=== PATIENT | male | born 1935 | race Two or more races ===

== ENCOUNTER 2022-12-11 14:52 | Outpatient (AMB) | payer OTHER, SELFPAY ==
--- NOTE | 2022-12-11 14:57 | MHC.PC.OV ---
Vital Signs 12/11/22 14:58 Height 6 ft Weight 140 lb BMI 19.0 BP 146/90 H Blood Pressure Location Lt brachial Position Sitting Intake Visit Reasons: bp Intake Note: Patient here for a follow up BP Mail Distribution Scheme Examiner Required: No Accompanied by: STEFFEN HOUSE SUPERVISOR Allergies No Known Allergies [No Known Allergies*] Allergy (Verified 12/11/22 15:19) Medication List - Last Reconciled 12/11/22 by Zully Sahni MD acetaminophen ER 1,300 mg (2 x 650 mg) PO Q8H PRN 30 days amlodipine 10 mg PO DAILY aspirin (Adult Aspirin Regimen) 81 mg PO DAILY 90 days atorvastatin 20 mg PO BEDTIME carvedilol (Coreg) 3.125 mg PO BID 90 days compress.stocking,knee,reg,lrg As directed donepezil 5 mg PO DAILY 90 days olmesartan 40 mg PO DAILY omega-3 fatty acids 1,000 mg PO DAILY 90 days quetiapine 25 mg PO BEDTIME trazodone 100 mg PO BEDTIME PRN 90 days Tobacco use date assessed: 06/10/22 Fall risk assessment: No Falls in past year Last assessed Fall Risk: 12/11/22 Dental Screening Dental Screen Date: 12/11/22 Did you have a dental visit in the last 12 months?: Yes Did you have a dental problem in the last 6 months where you did not have access to dental care?: No Was dental information given to patient?: Patient has dentist HPI HPI Comments History of Present Illness Details This is an 87-year-old male with chronic kidney disease stage 3, hypertension, dyslipidemia and dementia that comes today accompanied by STEFFEN HOUSE SUPERVISOR for follow-up on his conditions. Chronic kidney disease has improved and this is follow by Nephrology. Blood pressure has also improved. Cholesterol well control. Dementia has not significantly changed and this is follow by Neurology. Denies any chest pain or shortness of breath. Walks with a cane for gait stability. He has anemia of chronic kidney disease and received Procrit but low iron in the labs and I will start him on ferrous sulfate. [facility] Medical History Physical exam Onychomycosis Left inguinal hernia Insomnia CKD (chronic kidney disease) stage 3, GFR 30-59 ml/min Normocytic anemia Sacral pain Rib pain Hearing loss Endoleak post endovascular aneurysm repair Left inguinal hernia Dementia Restenosis of arterial stent Dyslipidemia Essential hypertension Surgical History History of AAA (abdominal aortic aneurysm) repair History of inguinal hernia repair History of appendectomy Family History Father Hypertension Mother Hypertension Social History Household Members: Spouse Housing: Apartment Are you a primary customer care manager to a significant other at home: No Do you presently have visiting nurse or other home services: Yes (STEFFEN HOUSE SUPERVISOR) Alcohol intake: former Patient Tobacco Use Status: Former Tobacco user Tobacco use type: Cigarette e-Cigarette/Vaping Use: Never Used Second Hand Smoke Exposure: No service: No Current occupational status: retired Cognitive needs: Yes (cane ) Hearing needs: Yes Vision needs: No Questionnaire Thrive Questionnaire Date Thrive assessed: 06/10/22 MICK-7 AMB Questionnaire MICK-7 Date MICK - 7 assessed: 06/10/22 Source: Developed by Drs. Jamir Hinson, Winnie Fernandes, Basil Olmos and colleagues, with an educational reji from [employer]. Review of Systems Const All systems reviewed & are unremarkable except as noted in HPI and below Eyes Reports no additional complaints, Denies change in vision and Denies other visual disturbances Card Denies chest pain at rest, Denies chest pain with activity, Denies edema, Denies irregular heart rhythm, Denies claudication, Denies dyspnea, Denies dyspnea on exertion, Denies orthopnea, Denies paroxysmal nocturnal dyspnea and Denies slow heart rate Resp Denies cough, Denies dyspnea and Denies dyspnea on exertion GI Denies abdominal pain, Denies change in bowel habits, Denies excessive flatus, Denies nausea and Denies vomiting Denies urinary hesitancy, Denies urinary incontinence and Denies urinary urgency Musc Denies abnormal gait, Denies atrophy, Denies deformity and Denies limited range of motion Skin/Breast Denies bleeding lesions, Denies changing lesions and Denies rash Neuro Denies abnormal gait and Denies lack of coordination Physical exam (Primary Care) Vital Signs: Last Vital Signs BP 146/90 H 12/11/22 14:58 BMI result Body Mass Index 19.0 Tobacco/Smoking Status: Tobacco use Status Tobacco use date assessed 06/10/22 12/11/22 15:01 Patient Tobacco Use Status Former Tobacco user 12/11/22 15:01 Tobacco use type Cigarette 12/11/22 15:01 e-Cigarette/Vaping Use Never Used 12/11/22 15:01 Thrive Assessment: Date of Thrive Assessment Date Thrive assessed 06/10/22 12/11/22 15:01 Eyes General: appearance normal, both eyes and all related structures Eyelids: Yes eyelids normal Conjunctivae: conjunctivae normal Neck Neck: Yes normal visual inspection and Yes supple Resp Effort & Inspection: normal respiratory effort Auscultation: clear to auscultation bilaterally Cardio Jugular venous distension: no JVD Rate: regular rate Rhythm: regular rhythm Heart sounds: S1 normal heart sound present and S2 normal heart sound present Extrem General: Yes full ROM Assessment and Plan Assessment & Plan (1) Essential hypertension: Code(s): I10 - Essential (primary) hypertension Plan: Continue amlodipine and olmesartan. Blood pressure goal is equal or less than 130/80. (2) Dyslipidemia: Code(s): E78.5 - Hyperlipidemia, unspecified Plan: Continue statins. (3) Dementia: Code(s): F03.90 - Unspecified dementia, unspecified severity, without behavioral disturbance, psychotic disturbance, mood disturbance, and anxiety Qualifiers: Dementia type: unspecified type Dementia behavioral disturbance: without behavioral disturbance Qualified Code(s): F03.90 - Unspecified dementia without behavioral disturbance Plan: Continue donepezil. Follow-up with Neurology. (4) CKD (chronic kidney disease) stage 3, GFR 30-59 ml/min: Code(s): N18.30 - Chronic kidney disease, stage 3 unspecified Qualifiers: Chronic kidney disease stage 3 subtype: stage 3a (GFR 45-59) Qualified Code(s): N18.31 - Chronic kidney disease, stage 3a Plan: Follow-up with nephrology. Orders: Orders Comprehensive Met. Panel 4 Months N18.30 - Chronic kidney disease, stage 3 unspecified Lipid Panel 4 Months E78.5 - Hyperlipidemia, unspecified Medications: New ferrous sulfate 325 mg PO DAILY 90 days 90 tabs 0RF Resumed trazodone 100 mg PO BEDTIME 90 days PRN 90 tabs 0RF sleep trazodone 100 mg PO BEDTIME 90 days PRN 90 tabs 0RF sleep Coding Level of Care Code Est Pt Level 4 (36188) Diagnoses Essential hypertension I10 Dyslipidemia E78.5 Dementia without behavioral disturbance, unspecified dementia type F03.90 Dementia type: unspecified type Dementia behavioral disturbance: without behavioral disturbance Stage 3a chronic kidney disease N18.31 Chronic kidney disease stage 3 subtype: stage 3a (GFR 45-59) Time Spent (min) 23
[2022-12-11 14:58] VITALS: BP 146/90; BMI 19.0
== END 2022-12-11 15:21 | disposition home or self-care (01) ==
PROVIDERS: PCP Internal Medicine; Visit Provider Internal Medicine
DX: I12.9 Hypertensive chronic kidney disease with stage 1 through stage 4 chronic kidney disease, or unspecified chronic kidney disease (principal); N18.31 Chronic kidney disease, stage 3a; E78.5 Hyperlipidemia, unspecified; F03.90 Unspecified dementia, unspecified severity, without behavioral disturbance, psychotic disturbance, mood disturbance, and anxiety
CPT/HCPCS: 99214

== ENCOUNTER 2023-06-17 09:16 | Outpatient (REF) | payer OTHER, SELFPAY ==
[2023-06-17 09:38] LABS: MANUAL DIFF FLAG NO
[2023-06-17 09:41] LABS: Basophils Percent Auto 0.7 % (0-2); Eosinophils Absolute Auto 0.1 X10*3/uL (0.0-0.4); Eosinophils Percent Auto 2.2 % (0-4); Hematocrit 36.2 % (42.0-52.0); Hemoglobin 11.9 g/dl (14.0-18.0); Imm Gran Abs Auto 0.02 X10*3/uL (0.00-0.03); Imm Gran Pct Auto 0.3 % (0.0-0.4); Lymphocytes Absolute Auto 1.9 X10*3/uL (1.2-4.9); Lymphocytes Percent Auto 32.4 % (20-40); Mean Corpuscular HGB Conc 32.9 g/dl (31.0-36.0); Mean Corpuscular Hemoglobin 29.2 pg (27.0-33.0); Mean Corpuscular Volume 88.7 fL (80.0-98.0); Mean Platelet Volume 10.2 fL (9.4-12.4); Monocytes Absolute Auto 0.6 X10*3/uL (0.1-1.2); Monocytes Percent Auto 9.8 % (2-11); Neutrophils Absolute Auto 3.2 x10*3/uL (2.0-8.3); Neutrophils Percent Auto 54.6 % (45-73); Platelet Count 132 X10*3/uL (160-400); Red Blood Count 4.08 X10*6/uL (4.60-5.80); Red Cell Distribution Width 14.6 % (11.0-16.0); White Blood Count 5.8 X10*3/uL (4.8-10.8)
[2023-06-17 09:59] LABS: Cholesterol 202 mg/dL (<200); HDL Cholesterol 62 mg/dL (>40); LDL Cholesterol Calculated 121 mg/dL (<100); Triglycerides 95 mg/dL (<150)
[2023-06-17 10:05] LABS: Alanine Aminotransferase 8 U/L (0-40); Alkaline Phosphatase 107 U/L (39-117); Anion Gap 14 (12-20); Aspartate Amino Transferase 13 U/L (5-37); Blood Urea Nitrogen 41 mg/dL (9-16); Calcium 9.4 mg/dL (8.4-10.2); Carbon Dioxide 24 mmol/L (22-29); Chloride 107 mmol/L (96-108); Estimated Glomerular Filt Rate 29; Glucose Random 80 mg/dL (60-115); Iron 102 mcg/dL (45-160); Percent Iron Saturation 34 % (15-50); Potassium 4.3 mmol/L (3.3-5.1); Sodium 141 mmol/L (135-145); Total Iron Binding Capacity 301 mcg/dL (228-428); Total Protein 7.9 g/dL (6.5-8.0); Unsaturated Iron Binding 199 ug/dL
[2023-06-17 10:19] LABS: Ferritin 149 ng/mL (20-250)
== END 2023-06-17 09:17 | disposition home or self-care (01) ==
LOC: HO.LAB 09:16
PROVIDERS: Absent Provider Internal Medicine Medical Oncology; PCP Internal Medicine; Visit Provider Internal Medicine
DX: D64.9 Anemia, unspecified (principal); E78.5 Hyperlipidemia, unspecified
CPT/HCPCS: 36415; 80053; 80061; 82728; 83540; 85025

== ENCOUNTER 2023-08-13 13:11 | Outpatient (AMB) | payer OTHER, SELFPAY ==
--- NOTE | 2023-08-13 13:14 | MHC.OFFVIS ---
Vital Signs 08/13/23 13:15 Height 6 ft Weight 162 lb 4.163 oz BMI 22.0 BP 140/78 H Blood Pressure Location Lt brachial Position Sitting Pulse 66 Pulse Source Monitor Pulse Oximetry (%) 97 Oxygen Delivery Method Room Air Intake Visit Reasons: r/s 08/06/23 refill rx Threshing Machine Operator Required: Yes Threshing Machine Operator Name: Luke Allergies No Known Allergies [No Known Allergies*] Allergy (Verified 03/03/23 15:40) Medication List - Last Reconciled 08/13/23 by Kerrie Gilbert NP acetaminophen ER 1,300 mg (2 x 650 mg) PO Q8H PRN 30 days [adult diapers pull-ups As directed] amlodipine 10 mg PO DAILY aspirin (Adult Aspirin Regimen) 81 mg PO DAILY 90 days atorvastatin 20 mg PO BEDTIME carvedilol (Coreg) 3.125 mg PO BID 90 days compress.stocking,knee,reg,lrg As directed donepezil 5 mg PO DAILY 90 days ferrous sulfate 325 mg PO DAILY 90 days olmesartan 40 mg PO DAILY omega-3 fatty acids 1,000 mg PO DAILY 90 days quetiapine 25 mg PO BEDTIME trazodone 100 mg PO BEDTIME PRN 90 days HPI Comments Details: 88-year-old male presents today for a follow-up with his RN NEW GRADUATE. He was last seen in 01/[address] Yanez. They both report he has been doing well since last visit. He denies any chest pains, palpitations, or dizziness. The RN NEW GRADUATE notes she has noted he gets has to use more effort to breath when ambulating. He has a history of ASCVD, CKD, Dementia, Hypertension, and anemia. [facility] Medical History Physical exam Onychomycosis Left inguinal hernia Insomnia CKD (chronic kidney disease) stage 3, GFR 30-59 ml/min Normocytic anemia Sacral pain Rib pain Hearing loss Endoleak post endovascular aneurysm repair Left inguinal hernia Dementia Restenosis of arterial stent Dyslipidemia Essential hypertension Surgical History History of AAA (abdominal aortic aneurysm) repair History of inguinal hernia repair History of appendectomy Family History Father Hypertension Mother Hypertension Social History Household Members: Spouse Housing: Apartment Are you a primary childcare administrator to a significant other at home: No Do you presently have visiting nurse or other home services: Yes (RN NEW GRADUATE) Alcohol intake: former Patient Tobacco Use Status: Former Tobacco user Tobacco use type: Cigarette e-Cigarette/Vaping Use: Never Used Second Hand Smoke Exposure: No Use of substances other than those prescribed or required for medical reasons: No Have you been hit, kicked, punched, or otherwise hurt by someone within the past year? If so, by whom?: No Do you have thoughts of harming others: None Do you have a plan to hurt others: No Plan Do you have the means to hurt others: No Recently lost weight without trying: No service: No Current occupational status: retired Cognitive needs: Yes (cane ) Hearing needs: Yes Vision needs: No Review of Systems Const Denies weakness ENT Denies dizziness Card Denies chest pain, Denies chest pain with activity, Denies syncope, Denies rapid heart rate, Denies pedal edema, Denies edema, Denies leg edema, Denies lightheadedness, Denies palpitations, Denies dyspnea, Denies dyspnea on exertion and Denies orthopnea Resp Denies cough, Denies dyspnea and Denies dyspnea on exertion GI Denies hematochezia and Denies change in stool character Musc Denies abnormal gait, Denies muscle cramps, Denies muscle weakness, Denies numbness, Denies radiating pain into limb and Denies tingling Neuro Denies abnormal gait, Denies dizziness, Denies syncope, Denies numbness, Denies tingling and Denies weakness Endo Denies palpitations Physical Exam Vital Signs: Last Vital Signs Pulse 66 08/13/23 13:15 BP 140/78 H 08/13/23 13:15 Pulse Ox 97 08/13/23 13:15 Oxygen Delivery Method Room Air 08/13/23 13:15 BMI result Body Mass Index 22.0 Office Procedures EKG Details: EKG today. Normal Sinus Rhythm. Voltage Criteria for left ventricular hypertrophy. Nonspecific ST abnormality. Rate 66 bpm. HI 170 ms. QRS 92ms. QTc 461ms. [id number], Complete Quality Reporting (2019) Adult ([facility] 138/2/22/69) Smoking risk assessment performed?: Yes Patient Tobacco Use Status: Former Tobacco user Assessment & Plan Assessment & Plan (1) Atherosclerotic cardiovascular disease: Code(s): I25.10 - Atherosclerotic heart disease of [place] coronary artery without angina pectoris Category: Medical (2) Essential hypertension: Code(s): I10 - Essential (primary) hypertension Category: Medical Plan Blood pressures high today. Asked to monitor at home and bring log to next visit. Patient is on amlodipine 10mg, aspirin 81mg, atorvastatin 20mg, carvedilol 3.125mg, and olmensartan 40mg. Low salt diet discussed. Will update lipid panel, BMP, and echo. Orders: Orders CA echo transthoracic complete 08/13/23 Kerrie Gilbert NP I25.10 - Atherosclerotic heart disease of [place] coronary artery without angina pectoris Lipid Panel 08/13/23 Kerrie Gilbert NP I25.10 - Atherosclerotic heart disease of [place] coronary artery without angina pectoris Basic Metabolic Panel 08/13/23 Kerrie Gilbert NP I25.10 - Atherosclerotic heart disease of [place] coronary artery without angina pectoris Lipid Panel 4 Months Kerrie Gilbert NP E78.5 - Hyperlipidemia, unspecified Medications: Resumed atorvastatin 20 mg PO BEDTIME 90 tabs 2RF Zully Sahni MD Coding Level of Care Code Est Pt Level 3 (40227) Diagnoses Atherosclerotic cardiovascular disease I25.10 Essential hypertension I10 CPT Codes EKG - CPT: 06066-[id number], Complete ([id number])
[2023-08-13 13:15] VITALS: BP 140/78; PULSE 66; O2SAT 97; BMI 22.0
== END 2023-08-13 14:09 | disposition home or self-care (01) ==
PROVIDERS: PCP Internal Medicine; Visit Provider Nurse Practitioner
DX: I25.10 Atherosclerotic heart disease of native coronary artery without angina pectoris (principal); I10 Essential (primary) hypertension
CPT/HCPCS: 93010; 99213

== ENCOUNTER → 2023-08-13 13:11 | Outpatient (BNVA) | payer OTHER, SELFPAY | PROVIDERS: PCP Internal Medicine; Visit Provider Nurse Practitioner | DX: I25.10 Atherosclerotic heart disease of native coronary artery without angina pectoris (principal); I10 Essential (primary) hypertension | CPT/HCPCS: 93005; 99212 ==

== ENCOUNTER → 2023-09-03 14:16 | Outpatient (REF) | payer OTHER, SELFPAY ==
--- NOTE | 2023-09-03 14:22 | CA_ITS ---
Transthoracic Echocardiogram Patient (Last, First, Middle): Malachi Griffin, Gender: Male Date of : 1935 Age: 88 Procedure Date: 09/03/2023 Procedure Type: Transthoracic Echocardiogram Location: OP Height: 182.88 cm Weight: 67.13 kg BSA: 1.87 m2 Heart Rate: 66 bpm BP: 142 / 74 mmHg Brand Marketing Intern: SB Referring MD: Kerrie Gilbert NP Symptoms: I25.10 - Atherosclerotic heart disease of [place] coronary artery without... Study Quality: Adequate ECG Rhythm: Sinus Conclusions: - The left ventricular systolic function is mildly decreased. The calculated ejection fraction is 48% by biplane method. - No obvious valvular pathology seen on this study. - There is mild dilatation of the ascending aorta measuring 4.50 cm. Findings Left Ventricle Normal left ventricular cavity size. The left ventricular systolic function is mildly decreased. The calculated ejection fraction is 48% by biplane method. There is mild global hypokinesis. Diastolic function is indeterminate on the basis of available data. There is severe septal asymmetric hypertrophy. Right Ventricle Normal right ventricular cavity size and systolic function. Atria Both atria are normal in size. Aortic Valve There is mild calcification of the aortic valve. There is no aortic valve regurgitation. Trace to mild aortic regurgitation. Mitral Valve There is mild anterior mitral leaflet thickening. There is no mitral valve regurgitation. There is no mitral valve stenosis. Pulmonic Valve The pulmonic valve is likely normal. Tricuspid Valve There is trace tricuspid valve regurgitation. There is no evidence of pulmonary hypertension. Great Vessels There is mild dilatation of the ascending aorta measuring 4.50 cm. Venous The inferior vena cava was not well visualized. Pericardium/Pleural There is no evidence of pericardial effusion. Prior Study Comparison Changes noted compared to prior study dated: 01/06/2022. Slight increase in ascending aortic size. Recommendations, Care & Conclusions No obvious valvular pathology seen on this study. Measurements 2D Linear Measurements IVSd: 1.54 0.6-0.9/0.6-1.0 cm LVIDd: 4.66 3.9-5.3/4.2-5.9 cm LVIDd Index: 2.49 2.4-3.2/2.2-3.1 cm/m2 LVIDs: 3.57 2.0-3.6 cm LVPWd: 0.91 0.7-1.1 cm LV Mass: 268.56 67-162/88-224 g LV Mass Index: 143.61 43-95/49-115 g/m2 LVOT Diam: 2.40 3.0+(-)1.3 cm 2D Systolic Function EF 4C: 48.90 >55% EF 2C: 46.20 >55% EF BiP: 48.20 >55% Mitral Valve MV Pk E: 0.45 MV PK A: 0.89 MV Decel Time: 117.00 E/A: 0.50 E'Lateral: 3.59 E'Medial: 2.28 E/E' Med: 19.60 E/E' Lat: 12.40 PHT: 34.00 MVA PHT: 6.47 Decel [place]: 3.80 Aortic Valve AoV Pk Alo: 1.51 AoV Mn Alo: 1.03 AoV VTI: 0.29 AoV Pk Grad: 9.00 Aov Mn Grad: 5.00 BRENDA Cont.VTI: 2.56 AI Pk Alo: 4.44 AI VTI: 2.14 AI [place]: 2.48 AI Alias Alo: 0.39 AI RV - PISA: 11.00 ERO - PISA: 5.00 LVOT LVOT Pk Alo: 0.85 LVOT Mn Alo: 0.56 LVOT VTI: 0.16 LVOT Pk Grad: 3.00 LVOT Mn Grad: 1.00 LVOT Diam: 2.40 LVOT Area: 4.52 Diastolic Function MV Pk E: 0.45 MV Pk A: 0.89 E/A: 0.50 E'Medial: 2.28 E/E' Med: 19.60 E' Laterial: 3.59 E/E' Lat: 12.40 Right Ventricle TAPSE (mm): 20.80 TVS' Alo: 11.10 Tricuspid Valve TR Pk Alo: 2.08 TR Pk Grad: 17.00 RA Press: 3.00 RVSP: 20.00 Great Vessels Aorta Sinus of Valsalva: 4.00 2.0-3.5 cm Ao Asc: 4.50 2.1-3.4 cm Pulmonary Valve PV Pk Alo: 0.78 Peak PV Grad: 2.00 Updated in Other Vendor System with Status of Final Josiah Yanez MD electronically signed on 09/04/2023 3:31:46 PM with status of Final
== END ==
LOC: HO.CARD 14:16
PROVIDERS: PCP Internal Medicine; Visit Provider Nurse Practitioner
DX: I25.10 Atherosclerotic heart disease of native coronary artery without angina pectoris (principal)
CPT/HCPCS: 93306

== ENCOUNTER → 2023-09-03 14:22 | Outpatient (BNV) | payer OTHER, SELFPAY | PROVIDERS: PCP Internal Medicine; Visit Provider Internal Medicine | DX: I35.1 Nonrheumatic aortic (valve) insufficiency (principal); I35.8 Other nonrheumatic aortic valve disorders; I42.2 Other hypertrophic cardiomyopathy | CPT/HCPCS: 93306 ==

== ENCOUNTER → 2023-11-02 23:59 | Outpatient (BNV) | payer OTHER, SELFPAY | PROVIDERS: PCP Internal Medicine; Visit Provider Internal Medicine | DX: G30.0 Alzheimer's disease with early onset (principal); F32.A Depression, unspecified; I10 Essential (primary) hypertension | CPT/HCPCS: G0179 ==

== ENCOUNTER 2023-11-03 15:33 | Outpatient (AMB) | payer OTHER, SELFPAY ==
--- NOTE | 2023-11-03 15:39 | MHC.PC.OV ---
Vital Signs 11/03/23 15:41 Height 6 ft Weight 148 lb BMI 20.1 BP 158/84 H Blood Pressure Location Lt brachial Position Sitting Intake Visit Reasons: PE Mill House Supervisor Required: No Accompanied by: photocopying equipment mechanic Allergies carvedilol Adverse Reaction (Severe, Verified 11/03/23 15:57) Diarrhea Medication List - Last Reconciled 11/03/23 by Zully Sahni MD acetaminophen ER 1,300 mg (2 x 650 mg) PO Q8H PRN 30 days [adult diapers pull-ups As directed] amlodipine 10 mg PO DAILY aspirin (Adult Aspirin Regimen) 81 mg PO DAILY 90 days atorvastatin 20 mg PO BEDTIME compress.stocking,knee,reg,lrg As directed donepezil 5 mg PO DAILY 90 days ferrous sulfate 325 mg PO DAILY 90 days metoprolol succinate ER 12.5 mg (1/2 x 25 mg) PO DAILY 90 days olmesartan 40 mg PO DAILY omega-3 fatty acids 1,000 mg PO DAILY 90 days quetiapine 25 mg PO BEDTIME trazodone 100 mg PO BEDTIME PRN 90 days Tobacco use date assessed: 11/03/23 Fall risk assessment: 1 Fall in past year Last assessed Fall Risk: 11/03/23 Dental Screening Dental Screen Date: 11/03/23 Did you have a dental visit in the last 12 months?: No Did you have a dental problem in the last 6 months where you did not have access to dental care?: No Was dental information given to patient?: Patient has dentist HPI HPI Comments History of Present Illness Details This is an 88-year-old male with dementia and chronic kidney disease stage 3 that comes accompanied by PAPER SUPERVISOR for his physical exam. He is awake, alert and oriented only to person but not to time or place. GFR has improved to 37. Has no acute complaints. No need for colonoscopy due to age. [facility] Medical History (Updated 11/03/23 @ 20:03 by Zully Sahni MD) Physical exam Physical exam Ascending aortic aneurysm Physical exam Onychomycosis Left inguinal hernia Insomnia CKD (chronic kidney disease) stage 3, GFR 30-59 ml/min Normocytic anemia Sacral pain Rib pain Hearing loss Endoleak post endovascular aneurysm repair Left inguinal hernia Dementia Restenosis of arterial stent Dyslipidemia Essential hypertension Surgical History History of AAA (abdominal aortic aneurysm) repair History of inguinal hernia repair History of appendectomy Family History Father Hypertension Mother Hypertension Social History Household Members: Spouse Housing: Apartment Are you a primary physician assistant primary care to a significant other at home: No Do you presently have visiting nurse or other home services: Yes (PAPER SUPERVISOR) Alcohol intake: former Patient Tobacco Use Status: Former Tobacco user Tobacco use type: Cigarette e-Cigarette/Vaping Use: Never Used Second Hand Smoke Exposure: No service: No Current occupational status: retired Cognitive needs: Yes (cane ) Hearing needs: Yes Vision needs: No Questionnaire PHQ-9 Over the last 2 weeks, how often have you been bothered by any of the following problems? 1. Little interest or pleasure in doing things: several days 2. Feeling down, depressed, or hopeless: several days 3. Trouble falling or staying asleep, or sleeping too much: not at all 4. Feeling tired or having little energy: several days 5. Poor appetite or overeating: not at all 6. Feeling bad about yourself - or that you are a failure or have let yourself or your family down: not at all 7. Trouble concentrating on things, such as reading the newspaper or watching television: not at all 8. Moving or speaking so slowly that other people could have noticed. Or the opposite - being so fidgety or restless that you have been moving around a lot more than usual: not at all 9. Thoughts that you would be better off or of hurting yourself in some way: not at all Total score: 3 Depression Screening Interpretation: Positive Depression Screening Follow-up: Existing condition and Follow-up Visit Requested Depression Screening Done: Yes 28061 - PHQ-9 Billing: Yes Source: Developed by Drs. Jamir Hinson, Winnie Fernandes, Basil Olmos and colleagues, with an educational reji from [employer]. Thrive Questionnaire Date Thrive assessed: 11/03/23 I am a: Patient What is your living situation today?: I have a steady place to live Within the past 12 months, did the food you bought not last and you didn't have the money to get more?: Never true Within the past 12 months, did you worry whether your food would run out before you got money to buy more?: Never true Do you have trouble paying for medicines?: No Do you have trouble getting transportation to medical appointments?: No Do you have trouble paying your heating and electricity bill?: No Do you have trouble taking care of your child, family member or friend?: No Do you have trouble with day-to-day activities such as bathing, preparing meals, shopping, managing finances, etc.?: Yes Are you currently unemployed and looking for a job?: No Are you interested in more education?: No Please select the resources that you would like help with: None Currently or been in a relationship where the following occur: No concerns reported THRIVE Score: 0 AUDIT C Alcohol Use Questionnaire (AUDIT-C) 1. How often do you have a drink containing alcohol?: Never Total Score: 0 Score Reviewed/Action Taken: No MICK-7 AMB Questionnaire MICK-7 Date MICK - 7 assessed: 11/03/23 Feeling nervous, anxious, or on edge: 0 = Not at all Not being able to stop or control worryin = Not at all Worrying too much about different things: 0 = Not at all Trouble relaxin = Not at all Being so restless that it is hard to sit still: 0 = Not at all Becoming easily annoyed or irritable: 1 = Several days Feeling afraid as if something awful might happen: 0 = Not at all Total MICK-7 score (0-4 normal; 5-9 mild; 10-14 moderate; 15-21 severe): 1 Source: Developed by Drs. Jamir Hinson, Winnie Fernandes, Basil Olmos and colleagues, with an educational reji from [employer]. MICK-7 Assessment Billing MICK-7 Assessment Tool: MICK-7 Assessment 12408 Review of Systems Const All systems reviewed & are unremarkable except as noted in HPI and below Card Denies chest pain at rest, Denies chest pain with activity, Denies edema, Denies irregular heart rhythm, Denies claudication, Denies dyspnea, Denies dyspnea on exertion, Denies orthopnea, Denies paroxysmal nocturnal dyspnea and Denies slow heart rate Resp Denies cough, Denies dyspnea and Denies dyspnea on exertion GI Denies abdominal pain, Denies change in bowel habits, Denies excessive flatus, Denies nausea and Denies vomiting Neuro Denies lack of coordination and Reports memory loss Psych Reports memory loss Physical exam (Primary Care) Vital Signs: Last Vital Signs BP 158/84 H 11/03/23 15:41 BMI result Body Mass Index 20.1 Tobacco/Smoking Status: Tobacco use Status Tobacco use date assessed 11/03/23 11/03/23 15:50 Patient Tobacco Use Status Former Tobacco user 11/03/23 15:40 Tobacco use type Cigarette 11/03/23 15:40 e-Cigarette/Vaping Use Never Used 11/03/23 15:40 PHQ-9: PHQ-9 Score PHQ-9: Total score 3 11/03/23 16:19 Depression Screening Interpretation: Positive Depression Screening Follow-up: Existing condition and Follow-up Visit Requested Thrive Assessment: Date of Thrive Assessment Date Thrive assessed 11/03/23 11/03/23 15:50 Currently or been in a relationship where the following occur: No concerns reported [facility] Head: Yes normal to inspection, Yes normocephalic and Yes atraumatic Ears: external ears normal Eyes General: appearance normal, both eyes and all related structures Eyelids: Yes eyelids normal Conjunctivae: conjunctivae normal Neck Neck: Yes normal visual inspection and Yes supple Resp Effort & Inspection: normal respiratory effort Auscultation: clear to auscultation bilaterally Cardio Jugular venous distension: no JVD Rate: regular rate Rhythm: regular rhythm Heart sounds: S1 normal heart sound present and S2 normal heart sound present GI Inspection: Yes normal to inspection Palpation (GI): Soft to palpation and nontender Auscultation: normal bowel sounds Skin General skin exam: no rashes or lesions noted Neuro General: no focal motor deficits Extrem General: Yes full ROM Psych Appearance: grossly normal Immunizations pneumoc 20-yoanna conj-dip cr(PF) 0.5 mL IM syringe Performing Provider: Zully Sahni MD Performing Location: [facility] Administered by: GOLDY Vazquez on 11/03/23 16:20 Dose Route Admin Location Dispensed Lot Number Expiration Date NDC Nuclear Medicine Tech 0.5 mL IM Left Deltoid 0.5 mL [id number] 08/01/25 4738-6276-61 WYETH/PFIZER VIS Given Date VIS Provided VIS Publication Date 11/03/23 Single Vaccine 21 Eligibility Eligibility Date Funding Source Not [facility] Eligible 11/03/23 Private Assessment and Plan Assessment & Plan (1) Physical exam: Code(s): Z00.00 - Encounter for general adult medical examination without abnormal findings Plan: Repeat in a year. (2) Dementia: Code(s): F03.90 - Unspecified dementia, unspecified severity, without behavioral disturbance, psychotic disturbance, mood disturbance, and anxiety Qualifiers: Dementia type: unspecified type Dementia behavioral disturbance: without behavioral disturbance Qualified Code(s): F03.90 - Unspecified dementia without behavioral disturbance Plan: Continue donepezil. (3) CKD (chronic kidney disease) stage 3, GFR 30-59 ml/min: Code(s): N18.30 - Chronic kidney disease, stage 3 unspecified Qualifiers: Chronic kidney disease stage 3 subtype: stage 3a (GFR 45-59) Qualified Code(s): N18.31 - Chronic kidney disease, stage 3a Plan: Avoid NSAIDs. Follow-up with nephrology. Orders: Orders Lipid Panel Today E78.5 - Hyperlipidemia, unspecified Comprehensive Castor. Panel Fast Today Z00.00 - Encounter for general adult medical examination without abnormal findings IRON PROFILE Today D64.9 - Anemia, unspecified Pneumococcal 20 Immunization Today Z23 - Encounter for immunization Complete Blood Count Auto Diff Today D64.9 - Anemia, unspecified T Spot TB Today Z11.1 - Encounter for screening for respiratory tuberculosis Coding Level of Care Code Est Pt Prev Care >65y(23248) Diagnoses Physical exam Z00.00 Dementia without behavioral disturbance, unspecified dementia type F03.90 Dementia type: unspecified type Dementia behavioral disturbance: without behavioral disturbance Stage 3a chronic kidney disease N18.31 Chronic kidney disease stage 3 subtype: stage 3a (GFR 45-59) Additional Codes MICK-7 Assessment Billing - MICK-7 Assessment Tool: MICK-7 Assessment 58041 ([id number]) Time Spent (min) 30
[2023-11-03 15:41] VITALS: BP 158/84; BMI 20.1
== END 2023-11-03 16:25 | disposition home or self-care (01) ==
PROVIDERS: PCP Internal Medicine; Visit Provider Internal Medicine
DX: Z00.00 Encounter for general adult medical examination without abnormal findings (principal); F03.90 Unspecified dementia, unspecified severity, without behavioral disturbance, psychotic disturbance, mood disturbance, and anxiety; N18.31 Chronic kidney disease, stage 3a; Z23 Encounter for immunization
CPT/HCPCS: 90471; 90677; 99397

== ENCOUNTER 2023-11-06 09:27 | Outpatient (REF) | payer OTHER, SELFPAY ==
[2023-11-06 09:45] LABS: MANUAL DIFF FLAG NO
[2023-11-06 10:02] LABS: Basophils Percent Auto 0.4 % (0-2); Eosinophils Absolute Auto 0.1 X10*3/uL (0.0-0.4); Hematocrit 32.1 % (42.0-52.0); Hemoglobin 10.3 g/dl (14.0-18.0); Imm Gran Abs Auto 0.02 X10*3/uL (0.00-0.03); Imm Gran Pct Auto 0.4 % (0.0-0.4); Lymphocytes Absolute Auto 2.1 X10*3/uL (1.2-4.9); Lymphocytes Percent Auto 38.2 % (20-40); Mean Corpuscular HGB Conc 32.1 g/dl (31.0-36.0); Mean Corpuscular Hemoglobin 30.1 pg (27.0-33.0); Mean Corpuscular Volume 93.9 fL (80.0-98.0); Mean Platelet Volume 10.7 fL (9.4-12.4); Monocytes Absolute Auto 0.5 X10*3/uL (0.1-1.2); Monocytes Percent Auto 9.2 % (2-11); Neutrophils Absolute Auto 2.7 x10*3/uL (2.0-8.3); Neutrophils Percent Auto 49.8 % (45-73); Platelet Count 157 X10*3/uL (160-400); Red Blood Count 3.42 X10*6/uL (4.60-5.80); Red Cell Distribution Width 14.9 % (11.0-16.0); White Blood Count 5.5 X10*3/uL (4.8-10.8)
[2023-11-06 11:14] LABS: Alanine Aminotransferase 7 U/L (0-40); Albumin Level 4.1 g/dL (3.5-5.0); Alkaline Phosphatase 99 U/L (39-117); Anion Gap 11 (12-20); Aspartate Amino Transferase 13 U/L (5-37); Bilirubin Total 0.6 mg/dL (0.0-1.0); Blood Urea Nitrogen 29 mg/dL (9-16); Calcium 9.9 mg/dL (8.4-10.2); Carbon Dioxide 27 mmol/L (22-29); Chloride 106 mmol/L (96-108); Cholesterol 165 mg/dL (<200); Estimated Glomerular Filt Rate 34; Glucose Fasting 84 mg/dL (60-99); HDL Cholesterol 60 mg/dL (>40); Iron 52 mcg/dL (45-160); LDL Cholesterol Calculated 86 mg/dL (<100); Percent Iron Saturation 20 % (15-50); Potassium 4.4 mmol/L (3.3-5.1); Sodium 140 mmol/L (135-145); Total Iron Binding Capacity 254 mcg/dL (228-428); Total Protein 7.7 g/dL (6.5-8.0); Triglycerides 96 mg/dL (<150); Unsaturated Iron Binding 202 ug/dL
== END 2023-11-06 09:28 | disposition home or self-care (01) ==
LOC: HO.LAB 09:27
PROVIDERS: Absent Provider Nurse Practitioner; PCP Internal Medicine; Visit Provider Internal Medicine
DX: Z00.00 Encounter for general adult medical examination without abnormal findings (principal); E78.5 Hyperlipidemia, unspecified; N18.30 Chronic kidney disease, stage 3 unspecified; Z11.1 Encounter for screening for respiratory tuberculosis; D64.9 Anemia, unspecified
CPT/HCPCS: 36415; 80053; 80061; 83540; 85025; 86481

== ENCOUNTER 2023-12-10 15:17 | Outpatient (AMB) | payer OTHER, SELFPAY ==
[2023-12-10 15:18] VITALS: BP 160/85; PULSE 66; BMI 19.9
--- NOTE | 2023-12-10 15:18 | MHC.OFFVIS ---
Vital Signs 12/10/23 15:18 Height 6 ft Weight 146 lb 13.246 oz BMI 19.9 BP 160/85 H Blood Pressure Location Lt brachial Position Sitting Pulse 66 Pulse Source Pulse Oximeter Intake Visit Reasons: 4m follow up Boiler Mechanic Required: Yes Boiler Mechanic Services: Boiler Mechanic Offered & Declined Boiler Mechanic Name: Luke-Caregiver Accompanied by: Self / Same As Patient Allergies carvedilol Adverse Reaction (Severe, Verified 11/03/23 15:57) Diarrhea Medication List - Last Reconciled 12/10/23 by Josiah Yanez MD acetaminophen ER 1,300 mg (2 x 650 mg) PO Q8H PRN 30 days [adult diapers pull-ups As directed] amlodipine 10 mg PO DAILY aspirin (Adult Aspirin Regimen) 81 mg PO DAILY 90 days atorvastatin 20 mg PO BEDTIME compress.stocking,knee,reg,lrg As directed donepezil 5 mg PO DAILY 90 days ferrous sulfate 325 mg PO DAILY 90 days metoprolol succinate ER 12.5 mg (1/2 x 25 mg) PO DAILY 90 days olmesartan 40 mg PO DAILY omega-3 fatty acids 1,000 mg PO DAILY 90 days quetiapine 25 mg PO BEDTIME trazodone 100 mg PO BEDTIME PRN 90 days HPI Comments Details: Malachi returns for follow-up regarding hypertension and ascending aortic aneurysm. He is accompanied by his HARD CANDY BATCH MIXER. Reported history of cardiac stents in the past, but no details available. He also has dementia. Longstanding poorly-controlled blood pressure. Otherwise, since I last saw him, it seems he is generally okay. Denies any clear-cut symptoms like angina or anything cardiac. Blood pressure is still high. [facility] Medical History (Updated 11/03/23 @ 20:03 by Zully Sahni MD) Physical exam Physical exam Ascending aortic aneurysm Physical exam Onychomycosis Left inguinal hernia Insomnia CKD (chronic kidney disease) stage 3, GFR 30-59 ml/min Normocytic anemia Sacral pain Rib pain Hearing loss Endoleak post endovascular aneurysm repair Left inguinal hernia Dementia Restenosis of arterial stent Dyslipidemia Essential hypertension Surgical History History of AAA (abdominal aortic aneurysm) repair History of inguinal hernia repair History of appendectomy Family History Father Hypertension Mother Hypertension Social History Household Members: Spouse Housing: Apartment Are you a primary child caregiver private home to a significant other at home: No Do you presently have visiting nurse or other home services: Yes (HARD CANDY BATCH MIXER) Alcohol intake: former Patient Tobacco Use Status: Former Tobacco user Tobacco use type: Cigarette e-Cigarette/Vaping Use: Never Used Second Hand Smoke Exposure: No service: No Current occupational status: retired Cognitive needs: Yes (cane ) Hearing needs: Yes Vision needs: No Review of Systems Const Denies chills, Denies fatigue, Denies fever(s), Denies weight gain and Denies weight loss ENT Denies dizziness Card Denies chest pain, Denies leg edema, Denies lightheadedness, Denies palpitations, Denies dyspnea on exertion, Denies orthopnea and Denies other Resp Denies cough and Denies dyspnea on exertion GI Denies hematochezia and Denies change in stool character Musc Denies abnormal gait, Denies muscle weakness, Denies numbness, Denies radiating pain into limb and Denies tingling Neuro Denies abnormal gait, Denies dizziness, Denies numbness and Denies tingling Endo Denies fatigue and Denies palpitations Physical Exam Vital Signs: Last Vital Signs Pulse 66 12/10/23 15:18 BP 160/85 H 12/10/23 15:18 BMI result Body Mass Index 19.9 Const General: comfortable and no acute distress Orientation/consciousness: patient oriented x3 HEENT Other: Unremarkable Head: Yes normal to inspection Neck Neck: Yes normal visual inspection Chest Chest palpation & inspection: normal inspection of the chest Resp Auscultation: clear to auscultation bilaterally Cardio Palpation: normal PMI Heart sounds: S1 normal heart sound present, S2 normal heart sound present, no gallops, no murmurs and no rubs GI Palpation (GI): Soft to palpation Back/Spine/Pelvis Other: unremarkable Skin General skin exam: no rashes or lesions noted Neuro General: patient oriented x3 Extrem General: Yes normal to inspection Psych Mental Status: mental status grossly normal Quality Reporting (2019) Adult ([facility] 138/2//69) Smoking risk assessment performed?: Yes Patient Tobacco Use Status: Former Tobacco user Assessment & Plan Assessment & Plan (1) Atherosclerotic cardiovascular disease: Code(s): I25.10 - Atherosclerotic heart disease of [place] coronary artery without angina pectoris Category: Medical (2) Essential hypertension: Code(s): I10 - Essential (primary) hypertension Category: Medical (3) Ascending aortic aneurysm: Code(s): I71.2 - Thoracic aortic aneurysm, without rupture Category: Medical Plan Cardiac studies reviewed. In the most recent echocardiogram from August, LVEF is 48%. No significant valvular findings. Ascending aortic size 4.5 cm. Various readings in the last few echos include 4.3 cm, 4.1 cm and in other study from [facility], 4.5 cm. Overall, no major change. Overall, this is stable but due to advanced age and dementia, likely not suitable for any procedures even if it enlarges substantially. With regard to the blood pressure, still quite high. I recheck this myself. In the past, beta-chucho dose was decreased because of tiredness and sinus bradycardia. Then we switched the metoprolol to carvedilol but apparently that gave him diarrhea. Otherwise, remains on olmesartan and amlodipine. I recommended that HARD CANDY BATCH MIXER can check the blood pressure at home on report for changes. We will also try to see if nurse navigator can help. With regard to dyslipidemia, on statins. Plan discussed with HARD CANDY BATCH MIXER who came for the appointment. Total time spent including review of records, counseling, documentation, coordination of care-32 minutes. Medications: New hydralazine 50 mg PO TID 270 tabs 3RF 90 days Coding Level of Care Code Est Pt Level 4 (14482) Diagnoses Atherosclerotic cardiovascular disease I25.10 Essential hypertension I10 Ascending aortic aneurysm I71.2
--- OUTSIDE RECORDS SUMMARY | 2023-12-10 15:19 | XMS_ITS | Continuity of Care Document ---
Author Organization [facility] Address [address] [place] [address]- Care Team Providers Care Equipment Records Supervisor Name Role Phone Wang Sahni MD, Mikaela Pabon Primary Care Physician Encounter [facility] Date(s): 01/02/20 - 02/01/[address] [address]- [facility] Allergies, Adverse Reactions, Alerts Substance Reaction Severity Status lisinopril Active Immunizations Given and Recorded Vaccine Date Status Refusal Reason tetanus-diphtheria toxoids (Td) 1 12/26/19 Given influenza virus vaccine, inactivated 05/19/19 Give n influenza virus vaccine, inactivated 2 12/26/08 Gi bunny influenza virus vaccine, inactivated 3 03/07/08 Gi bunny Not Given Vaccine Date Status Refusal Reason pneumococcal 13-valent vaccine 4 05/19/19 Not Give n Patient Refuses 1Result Comment: [facility]:[id number] 2Admin Note: ADM BY RAJEEV SHAH,vis 11/14/08 given 3Admin Note: GIVEN BY NURSE 4Result Comment: already received past 5 years Medications Acetaminophen = 650 mg, By Mouth, 2 times a day, 0 Refills, Maintenance, 05/19/19 11:43:00 EST Start Date: 05/19/19 Status: Ordered amLODIPine 5 mg oral tablet 1 tablet = 5 mg, By Mouth, Daily, # 30 tablet, 0 Refills, Maintenance, 05/18/19 12:42:00 EST, Tablet Start Date: 05/18/19 Status: Ordered aspirin 81 mg oral tablet See Instructions, 1 tablet By Mouth Daily 90 days, # 90 tablet, 0 Refills Start Date: 02/12/09 Stop Date: 03/14/09 Status: Ordered atorvastatin 20 mg oral tablet 1 tablet = 20 mg, By Mouth, Daily, # 30 tablet, 0 Refills, Maintenance, 05/18/19 12:43:00 EST, Tablet Start Date: 05/18/19 Status: Ordered donepezil 5 mg oral tablet 5 mg, 1, tablet, By Mouth, Daily at bedtime, # 30 tablet, Refills 0, Maintenance, 05/18/19 12:42:00EST Start Date: 05/18/19 Status: Ordered Fish Oil 1000 mg oral capsule 1 capsule = 1,000 mg, By Mouth, Daily, 0 Refills, Maintenance, 05/19/19 11:42:00 EST Start Date: 05/19/19 Status: Ordered Home Blood Pressure Monitor See Instructions, 1, 0, 0, 03/21/08 13:56:00, Take blood pressure in AM and in the evening., Nereyda Bro St[facility] Start Date: 03/21/08 Status: Ordered Melatonin 5 mg oral tablet See Instructions, 30, 1, 1, 03/21/08 13:56:50, 1 tablet By Mouth every night before bedtime, Print GALLO Number, Constant Indicator Start Date: 03/21/08 Status: Ordered Metoprolol Succinate ER 25 mg oral tablet, extended release 1 tablet = 25 mg, By Mouth, Daily, # 30 tablet, 0 Refills, Maintenance, 05/18/19 12:43:00 EST, ER Tablet Start Date: 05/18/19 Status: Ordered olmesartan 40 mg oral tablet 1 tablet = 40 mg, By Mouth, Daily, # 30 tablet, 0 Refills, Maintenance, 05/18/19 12:42:00 EST, Tablet Start Date: 05/18/19 Status: Ordered prazosin 1 mg oral capsule TK ONE C PO QHS Start Date: 05/18/19 Status: Ordered traZODone 50 mg oral tablet 50 mg, 1, tablet, By Mouth, Daily at bedtime, # 30 tablet, Refills 0, Maintenance, 05/18/19 12:42:00 EST Start Date: 05/18/19 Status: Ordered triamcinolone topical 0.1% cream 1, applicator, Topically, 3 times a day, 60, Gm, 0, 1, 04/18/08 13:14:34, 04/07/08 12:30:08, Print GALLO Number, 68, Constant Indicator Start Date: 04/07/08 Stop Date: 05/21/08 Status: Ordered Problem List Condition Effective Dates Status Health Status Inform ant CVA (cerebrovascular accident)(Confirmed) Active CKD (chronic kidney disease)(Confirmed) Active CVA - Cerebrovascular accident(Confirmed) 06/2007 Active Dementia(Confirmed) Active Depression(Confirmed) Active Hypercholesterolemia(Confirmed) Active Hypertension(Confirmed) Active TIA(Confirmed) 06/2007 Active TIA (transient ischemic attack)(Confirmed) Active
--- OUTSIDE RECORDS SUMMARY | 2023-12-10 15:19 | XMS_ITS | Continuity of Care Document ---
Author Organization [facility] Address [address] [place] [address]- Care Team Providers Care Knife Glazer Name Role Phone Wang Sahni MD, Oralia Primary Care Physician [phone] Encounter [facility] Date(s): 06/29/23 - 07/29/23 [facility] [address] [place] [address]- Attending Physician: Esha Camargo Admitting Physician: AdmtrEsha Referring Physician: Admtr, ArRj Allergies, Adverse Reactions, Alerts Substance Reaction Severity Status lisinopril Active Immunizations Given and Recorded Vaccine Date Status Refusal Reason tetanus-diphtheria toxoids (Td) 1 12/26/19 Given influenza virus vaccine, inactivated 05/19/19 Give n influenza virus vaccine, inactivated 2 12/26/08 Gi bunny influenza virus vaccine, inactivated 3 03/07/08 Gi bunny 1Result Comment: [facility]:[id number] 2Admin Note: ADM BY RAJEEV SHAH,vis 11/14/08 given 3Admin Note: GIVEN BY NURSE Medications Acetaminophen = 650 mg, By Mouth, [...] EST, Tablet Start Date: 05/18/19 Status: Ordered traZODone 50 [...] Date: 05/21/08 Status: Ordered Problem List Condition Confirmation Course Effective Dates Status Health Status Informant CVA (cerebrovascular accident) Confirmed Active CKD (chronic kidney disease) Confirmed Active CVA - Cerebrovascular accident Confirmed 06/2007 Active Dementia Confirmed Active Depression Confirmed Active Hypercholesterolemia Confirmed Active Hypertension Confirmed Active TIA Confirmed 06/2007 Active TIA (transient ischemic attack) Confirmed Active Patient Care team information Care Team Personnel Name: Bina Lin NP Position: [facility] PCO Associate Professional Member Role: Primary Care Nurse Address: Address: [address] [place] [id number]- [place] Name: Chalino Shoemaker MD Position: [facility] Renal MD Member Role: Lifetime Consulting Physician Address: Address: [address] [place] [address] [address] [facility] [place] [place] [address]- [place] Name: Maria Antonia SHAH, Kristel Position: [facility] RN Member Role: Primary Care Nurse Name: Wang Sahni MD , Zully Pabon Position: Reference Physician Member Role: PCP Address: Address: [address] [place] [address]- [place] Care Team Related Persons Name: SURI DE LOS SANTOS JR AND ELMIRA Address: home [address] [place] [address] Name: SARAHI NIX Address: home [address] [place] [address] Name: JUAN DIEGO HEATON Address: home [address] [place] [address]
--- OUTSIDE RECORDS SUMMARY | 2023-12-10 15:19 | XMS_ITS | Continuity of Care Document ---
Author Organization [facility] Address [address] [place] [address]- Care Team Providers Care Handtools Repairer Name Role Phone Wang Sahni MD, Oralia Primary Care Physician Encounter [facility] R [id number] Date(s): 02/25/22 - 03/04/22 [facility] [address] [place] [address]- Attending Physician: Khurram Singh MD Admitting Physician: Khurram Singh MD Allergies, Adverse Reactions, Alerts Substance Reaction Severity [...] Not Give n Patient Refuses 1Result Comment: [facility]:[id number] 2Admin Note: ADM BY RAJEEV SHAH,vis 11/14/08 [...] Constant Indicator Start Date: 04/07/08 Stop Date: 2/15/09 Status: Ordered Problem List Condition Confirmation Course Effective Dates Status Health Status Informant CVA (cerebrovascular accident) Confirmed Active CKD (chronic kidney disease) Confirmed Active CVA - Cerebrovascular accident Confirmed 06/2007 Active Dementia Confirmed Active Depression Confirmed Active Hypercholesterolemia Confirmed Active Hypertension Confirmed Active TIA Confirmed 06/2007 Active TIA (transient ischemic attack) Confirmed Active Vital Signs Most recent to oldest [Reference Range]: 1 Height 182 cm (02/25/22 11:03 AM) Weight 65.27 kg (02/25/22 11:03 AM) Oxygen Saturation [94-100 %] 97 % (02/25/22 11:03 AM) Pulse Rate [55-90 bpm] 69 bpm (02/25/22 11:03 AM) Body Mass Index [18.5-24.99 kg/m2] 19.7 kg/m2 (02/25/22 11:03 AM) Blood Pressure [90-138/55-84 mm Hg] 132/ 72mm Hg (02/25/22 11:03 AM) Mode of Delivery (Oxygen) Room air (02/25/22 11:03 AM) Blood pressure sites Arm, right (02/25/22 11:03 AM) Weight Obtained Via Patient/family state d (02/25/22 11:03 AM) Patient Care team information Care Team Personnel Name: Riley BUTLER, Bina Scruggs Position: [facility] Associate Professional Member Role: Primary Care Nurse Address: Address: [address] [place] [address]- Name: Chalino Shoemaker MD Position: [facility] Renal MD Member Role: Lifetime Consulting Physician Address: Address: [address] [place] [address] [address] [facility] [place] [address]- Name: Kristel Em RN Position: [facility] RN Member Role: Primary Care Nurse Name: Wang Sahni MD , Zully Pabon Position: Reference Physician Member Role: PCP Address: Address: [address] [place] [address]- Care Team Related Persons Name: SURI DE LOS SANTOS JR AND ELMIRA Address: home [address] [place] [address] Name: SARAHI NIX Address: home [address] [place] [address] Name: JUAN DIEGO HEATON Address: home [address] [place] [address]
--- OUTSIDE RECORDS SUMMARY | 2023-12-10 15:19 | XMS_ITS | Continuity of Care Document ---
Author Organization [facility] Address [address] [place] [address]- Care Team Providers Care Guest Services Lead Name Role Phone Wang Sahni MD, Mikaela Pabon Primary Care Physician Encounter [facility] Date(s): 12/26/19 - 01/02/20 [facility] [address] [place] [address]- [facility] Attending Physician: Zachary Leiva MD Referring Physician: Mikaela Harrison MD Allergies, Adverse Reactions, Alerts Substance Reaction [...] Give n Patient Refuses 1Result Comment: [facility]:[id number] 2Admin Note: ADM BY RAJEEV SHAH,vis 11/14/08 [...] in AM and in the evening., Nereyda Bro,Debbie Start Date: 03/21/08 Status: Ordered Melatonin 5 [...] 06/2007 Active TIA (transient ischemic attack)(Confirmed) Active Vital Signs Most recent to oldest [Reference Range]: 1 Height 182 cm (12/26/19 1:18 PM) Oxygen Saturation [94-100 %] 99 % (12/26/19 1:18 PM) Pulse Rate [55-90 bpm] 98 bpm *H* (12/26/19 1:18 PM) Blood Pressure [90-138/55-84 mm Hg] 161/ 76mm Hg *H* (12/26/19 1:18 PM) Respiratory Rate [16-30 br/min] 20 br/mi n (12/26/19 1:18 PM) Temperature [96.8-100.4 DegF] 98.3 DegF (12/26/19 1:18 PM) Mode of Delivery (Oxygen) Room air (12/26/19 1:18 PM) Blood pressure sites Arm, left (12/26/19 1:18 PM) Temperature Route Temporal (12/26/19 1:18 PM)
--- OUTSIDE RECORDS SUMMARY | 2023-12-10 15:19 | XMS_ITS | Continuity of Care Document ---
Author Organization [facility] Address [address] [place] [address]- Care Team Providers Care Car Ferry Master Name Role Phone Wang Sahni MD, Mikaela Pabon Primary Care Physician [place] [facility] Date(s): 12/13/19 - 01/12/20 [facility] [address] [place] [address]- [facility] Allergies, Adverse Reactions, Alerts Substance Reaction Severity [...] Give n Patient Refuses 1Result Comment: [facility]:[id number] 2Admin Note: ADM BY RAJEEV SHAH,vis 11/14/08 [...]
--- OUTSIDE RECORDS SUMMARY | 2023-12-10 15:19 | XMS_ITS | Continuity of Care Document ---
Author Organization [facility] Address [address] [place] [address]- Care Team Providers Care Washcoat Wiper Name Role Phone Wang Sahni MD, Oralia Primary Care Physician [phone] Encounter [facility] Date(s): 01/08/22 - 02/07/22 [facility] [address] [place] [address] Allergies, Adverse Reactions, Alerts Substance Reaction Severity [...] Not Give n Patient Refuses 1Result Comment: [facility]:[id number] 2Admin Note: ADM BY RAJEEV SHAH,vis 11/14/08 [...] attack) Confirmed Active Patient Care team information Personnel Name: Wang Sahni MD , Zully Pabon Address: Address: [address] [place] [address]
--- OUTSIDE RECORDS SUMMARY | 2023-12-10 15:19 | XMS_ITS | Continuity of Care Document ---
Author Organization [facility] Address [address] [place] [address]- Care Team Providers Care Manager Environmental Health Name Role Phone Wang Sahni MD, Zully Pabon Primary Care Physician [phone] Encounter [facility] Date(s): 08/13/20 - 09/12/20 [facility] [address] [place], [place] [address] Attending Physician: Esha Camargo Admitting Physician: Admtr, Esha Referring Physician: Admtr, Ar8 Allergies, Adverse Reactions, Alerts Substance Reaction Severity [...] Not Give n Patient Refuses 1Result Comment: [facility]:[id number] 2Admin Note: ADM BY RAJEEV SHAH,vis 11/14/08 [...]
--- OUTSIDE RECORDS SUMMARY | 2023-12-10 15:19 | XMS_ITS | Continuity of Care Document ---
Author Organization [facility] Address [address] [place] [address]- Care Team Providers Care Side Seam Machine Operator Name Role Phone Wang Sahni MD, Zully Pabon Primary Care Physician [phone] Encounter [facility] Date(s): 02/17/22 - 03/19/22 [facility] [address] [place] [address] Allergies, Adverse Reactions, Alerts Substance Reaction Severity [...] Not Give n Patient Refuses 1Result Comment: [facility]:[id number] 2Admin Note: ADM BY RAJEEV SHAH,vis 11/14/08 [...] Team Personnel Name: Bina Lin NP Position: [facility] Associate Professional Member Role: Primary Care Nurse Address: Address: [address] [place] [address]- Name: Chalino Shoemaker MD Position: [facility] Renal MD Member Role: Lifetime Consulting Physician Address: Address: [address] [place], [place] [address] [place] [address]- Name: Maria Antonia SHAH, Kristel Position: [facility] RN Member Role: Primary Care Nurse Name: Wang Sahni MD , Zully Pabon Position: Reference Physician Member Role: PCP Address: Address: [address] [place] [address]- Care Team Related Persons Name: SURI DE LOS SANTOS JR AND ELMIRA Address: home [address] [place] [address] Name: SARAHI NIX Address: home [address] [place] [address] Name: JUAN DIEGO HEATON Address: home [address] [place] [address]
--- OUTSIDE RECORDS SUMMARY | 2023-12-10 15:19 | XMS_ITS | Continuity of Care Document ---
Author Organization [facility] Address [address] [place] [address]- Care Team Providers Care Crown Perforator Operator Name Role Phone Wang Sahni MD, Mikaela Pabon Primary Care Physician Encounter [facility] Date(s): 12/26/19 - 01/25/20 [facility] [address] [place] [address]- [facility] Attending Physician: Esha Camargo Admitting Physician: AdmEsha soto Referring Physician: AdmtrEsha Allergies, Adverse Reactions, Alerts Substance Reaction Severity [...] Not Give n Patient Refuses 1Result Comment: [facility]:[id number] 2Admin Note: ADM BY RAJEEV SHAH,vis 11/14/08 [...] day, 60, Gm, 0, 1, 04/18/08 13:14:34, 01/02/09 12:30:08, Print GALLO Number, 68, Constant Indicator Start Date: 04/07/08 Stop Date: 05/21/08 Status: Ordered Problem List Condition Effective Dates Status Health Status Inform ant CVA (cerebrovascular accident)(Confirmed) Active CKD (chronic kidney disease)(Confirmed) Active CVA - Cerebrovascular accident(Confirmed) 06/2007 Active Dementia(Confirmed) Active Depression(Confirmed) Active Hypercholesterolemia(Confirmed) Active Hypertension(Confirmed) Active TIA(Confirmed) 06/2007 Active TIA (transient ischemic attack)(Confirmed) Active
--- OUTSIDE RECORDS SUMMARY | 2023-12-10 15:19 | XMS_ITS | Continuity of Care Document ---
Author Organization [facility] Address [address] [place] [address]- Care Team Providers Care Body Art Technician Name Role Phone Wang Sahni MD, Zully Pabon Primary Care Physician [phone] Encounter [facility] Date(s): 06/29/23 - 07/06/23 [facility] [address] [place] [address]- Attending Physician: Zachary Leiva MD Referring Physician: Wang Sahni MD , Zully Pabon Allergies, Adverse Reactions, Alerts Substance Reaction Severity Status lisinopril Active Immunizations Given and Recorded Vaccine Date Status Refusal Reason tetanus-diphtheria toxoids (Td) 1 12/26/19 Given influenza virus vaccine, inactivated 05/19/19 Give n influenza virus vaccine, inactivated 2 12/26/08 Gi bunny influenza virus vaccine, inactivated 3 03/07/08 Gi bunny 1Result Comment: [facility]:[id number] 2Admin Note: ADM BY RAJEEV SHAH,vis 11/14/08 [...] oldest [Reference Range]: 1 Height 182 cm (06/29/23 4:03 PM) Oxygen Saturation [94-100 %] 100 % (06/29/23 4:03 PM) Pulse Rate [55-90 bpm] 67 bpm (06/29/23 4:03 PM) Blood Pressure [90-138/55-84 mm Hg] 205/ 109mm Hg *H* (06/29/23 4:03 PM) Temperature [96.8-100.4 DegF] 97.8 DegF (06/29/23 4:03 PM) Mode of Delivery (Oxygen) Room air (06/29/23 4:03 PM) Blood pressure sites Arm, right (06/29/23 4:03 PM) Temperature Route Temporal (06/29/23 4:03 PM) Note * Cali MONSON, Zachary: PERFORM, SIGN, VERIFY Event Display: Patient Education/Instruction Authored Date: [id number] [facility] *[facility] Clinical Summary Name SURI DE LOS SANTOS Age 88 Years 1935 PCP Wang Sahni MD , Zully Pabon PCP Visit Date 06/29/2023 14:00:00 Patient Instructions Diagnosis:??Acute sinusitis ?Probable mild bronchitis? Prescription for Augmentin, 1 twice a day for 7 days.?? This should treat both problems, but if he develops GI upset from it that significant, call and we can change the prescription. Consider nasal saline spray??to help thin the mucus and let him blow it out more easily.?? Use this1 spray both nostrils 2-3 times a day. Humidifying the air, especially in the bedroom at night can also be helpful. Follow-up sooner for worsening symptoms or go to the emergency department if difficulty breathing, or??not tolerating oral intake or marked??change??in??mental status. Additional Instructions: Scheduled Appointments?? Future Appointments ?No Future Appointments Scheduled Follow-Up Instructions ?? Diagnosis Medications: Please continue your medications until treatment is completed or stopped by your provider. Discuss any questions related to medications with your provider. New Medications [id number], [address] [place], [place] [id number], [phone] Amoxicillin-Clavulanate (amoxicillin-clavulanate 875 mg-125 mg oral tablet) 1 tab(s) Oral twice a day for 7 Days. with food or milk. Refills: 0. Next Dose: Medications to Continue with No Changes These medications were not printed or sent to your pharmacy Acetaminophen 650 Milligram Oral twice a day. Next Dose: Amlodipine (amLODIPine 5 mg oral tablet) 1 tab(s) Oral Daily. Next Dose: Aspirin (aspirin 81 mg oral tablet) See Instructions. 1 tablet By Mouth Daily 90 days. Refills: 0. Next Dose: Atorvastatin (atorvastatin 20 mg oral tablet) 1 tab(s) Oral Daily. Next Dose: Donepezil (donepezil 5 mg oral tablet) 1 tab(s) Oral Daily at Bedtime. Next Dose: Durable Medical Equipment (Home Blood Pressure Monitor) See Instructions. Take blood pressure in AMand in the evening.. Refills: 0. Next Dose: Melatonin (Melatonin 5 mg oral tablet) See Instructions. 1 tablet By Mouth every night before bedtime. Refills: 1. Next Dose: Metoprolol (Metoprolol Succinate ER 25 mg oral tablet, extended release) 1 tab(s) Oral Daily. Next Dose: Olmesartan (olmesartan 40 mg oral tablet) 1 tab(s) Oral Daily. Next Dose: [place]-3 Polyunsaturated Fatty Acids (Fish Oil 1000 mg oral capsule) 1 capsule Oral Daily. Next Dose: Trazodone (traZODone 50 mg oral tablet) 1 tab(s) Oral Daily at Bedtime. Next Dose: Triamcinolone Topical (triamcinolone topical 0.1% cream) 1 applicator Topically 3 times a day for 30 Days. Refills: 0. Next Dose: Allergy Info:?? lisinopril Medications Given This Visit Future Orders ?No future orders Future Orders ?No future orders Vital Signs Height 182 cm Weight BMI Blood Pressure 205 mm Hg/109 mm Hg Temperature 97.8 DegF Pulse Rate 67 bpm Respiratory Rate 02 Sat Mode of Delivery 100 %/Room air You can now view a summary of your hospital visit from the comfort of your home through a free online portal called CallVU. CallVU is a website that allows you to securely view your medical information including discharge summary, medications and follow-up visits. ??You can alsosend a secure electronic message to your doctor???s office to request appointments, renew medications or just ask a question. You can enroll at [email or web address] or register during your next office visit. Disclaimer:?? The information provided is of a general nature and is intended to be used in conjunction with the recommendations and advice of your health care practitioner. ??Every effort has been made to ensure that the information provided is accurate and complete at the time it is provided to you however, as your needs change, or, as new ??information becomes available, different or additional instructions may be required. If you have questions, please consult with your primary care provider or pharmacist, as appropriate. ??This information is not intended to serve as substitution for assessment and evaluation by a qualified health care provider. If you do not have a primary care provider, you may find a [facility] provider by calling [facility] Link at [phone]. [facility], in keeping with [facility] guidance, no longer requires face masks for staff, patientsor visitors in most situations. Similar to time spent indoors at other locations, there is the chance that you were exposed to respiratory viruses during your time with us (such as flu or COVID-19).? If you develop symptoms concerning for a viral respiratory infection, please seek testing (and treatment if indicated) from your medical provider or home test kit. For information about the plan of care including goals and instructions for your diagnosis, please see the patient education orders section of this document. Patient Education Materials?? The content of this educational material or handout may have been modified, supplemented, or adapted from its original content and format to support your individualized medical care. Patient Care team information Care Team Personnel Name: Bina Lin NP Position: [facility] Associate Professional Member Role: Primary Care Nurse Address: Address: [address] [place], [place] - Name: Chalino Shoemaker MD Position: [facility] Renal MD Member Role: Lifetime Consulting Physician Address: Address: [address] [facility] [address] [facility] [place], [place] - Name: Kristel Em RN Position: [facility] RN Member Role: Primary Care Nurse Name: Wang Sahni MD , Zully Pabon Position: Reference Physician Member Role: PCP Address: Address: [address] [facility] [address] [place] [address]- Care Team Related Persons Name: SURI DE LOS SANTOS JR AND ELMIRA Address: home [address] [place] [address] Name: SARAHI NIX Address: home [address] [address] Name: JUAN DIEGO HEATON Address: home [address] [place] [address]
--- OUTSIDE RECORDS SUMMARY | 2023-12-10 15:19 | XMS_ITS | Continuity of Care Document ---
Author Organization [facility] Address [address] [place] [address]- Care Team Providers Care Distributor Cleaner Name Role Phone Wang Sahni MD, Mikaela Pabon Primary Care Physician [phone] Encounter [facility] Date(s): 08/13/20 - 08/20/20 [facility] [address] [place] [address]- Encounter Diagnosis Itching(Discharge Diagnosis) - 08/13/20 Attending Physician: Zachary Leiva MD Allergies, Adverse Reactions, Alerts Substance Reaction [...] Not Give n Patient Refuses 1Result Comment: [facility]:[id number] 2Admin Note: ADM BY RAJEEV SHAH,vis 11/14/08 [...] 06/2007 Active TIA (transient ischemic attack)(Confirmed) Active Diagnosis Diagnosis Type Effective Dates Health Status Clini camron Service Informant Itching Discharge Diagnosis 08/13/20 Vital Signs Most recent to oldest [Reference Range]: 1 Height 182 cm (08/13/20 2:48 PM) Oxygen Saturation [94-100 %] 100 % (08/13/20 2:48 PM) Pulse Rate [55-90 bpm] 52 bpm *L* (08/13/20 2:48 PM) Blood Pressure [90-138/55-84 mm Hg] 149/ 84mm Hg *H* (08/13/20 2:48 PM) Respiratory Rate [16-30 br/min] 18 br/mi n (08/13/20 2:48 PM) Temperature [96.8-100.4 DegF] 97.5 DegF (08/13/20 2:48 PM) Mode of Delivery (Oxygen) Room air (08/13/20 2:48 PM) Blood pressure sites Arm, right (08/13/20 2:48 PM) Temperature Route Temporal (08/13/20 2:48 PM)
--- OUTSIDE RECORDS SUMMARY | 2023-12-10 15:19 | XMS_ITS | Continuity of Care Document ---
Author Organization [facility] ter Address [address] [place] [address]- Care Team Providers Care E Learning Specialist Name Role Phone Wang Sahni MD, Mikaela Pabon Primary Care Physician Encounter [facility] Date(s): 12/30/19 - 02/11/[address] [address] Attending Physician: Jose Maher MD Admitting Physician: Jose Maher MD Referring Physician: Jose Maher MD Allergies, Adverse Reactions, Alerts Substance Reaction [...] Not Give n Patient Refuses 1Result Comment: [facility]:[id number] 2Admin Note: ADM BY RAJEEV SHAH,vis 11/14/08 [...]
--- OUTSIDE RECORDS SUMMARY | 2023-12-10 15:19 | XMS_ITS | Continuity of Care Document ---
Author Organization [facility] Address [address] [place] [address]- Care Team Providers Care Dress Designer Name Role Phone Wang Sahni MD, Oralia Primary Care Physician [place] [facility] Date(s): 02/25/22 - 03/27/22 [facility] [address] [place], [place] [address] Attending Physician: Esha Camargo Admitting Physician: AdmtrEsha Referring Physician: AdmtrEsha Allergies, Adverse Reactions, Alerts [...] Not Give n Patient Refuses 1Result Comment: [facility]:[id number] 2Admin Note: ADM BY RAJEEV SHAH,vis 11/14/08 [...] Team Personnel Name: Bina Lin NP Position: [facility] Associate Professional Member Role: Primary Care Nurse Address: Address: [address] [place] [address] [place] [address]- Name: Chalino Shoemaker MD Position: [facility] Renal MD Member Role: Lifetime Consulting Physician Address: Address: [address] [place] [address] [address] [facility] [place] [address]- Name: Maria Antonia SHAH, Kristel Position: [facility] RN Member Role: Primary Care Nurse Name: Wang Sahni MD , Zully Pabon Position: Reference Physician Member Role: PCP Address: Address: [address] [place] [address]- Care Team Related Persons Name: SURI DE LOS SANTOS JR AND ELMIRA Address: home [address] [place] [address] Name: SARAHI NIX Address: home [address] [place] [address] Name: JUAN DIEGO HEATON Address: home [address] [place] [address]
--- OUTSIDE RECORDS SUMMARY | 2023-12-10 15:19 | XMS_ITS | Continuity of Care Document ---
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 Discharge Disposition: Disch/Trans to IP Rehab or unit w/in Hos Attending Physician: Nika MONSON, Jose Plummer Admitting Physician: Jose Maher MD Referring Physician: Not on Staff, Referring MD Allergies, Adverse Reactions, Alerts Substance Reaction Severity Status lisinopril Active Immunizations Given and Recorded Vaccine Date Status Refusal Reason influenza virus vaccine, inactivated 05/19/19 Give n influenza virus vaccine, inactivated 1 12/26/08 Gi bunny influenza virus vaccine, inactivated 2 03/07/08 Gi bunny Not Given Vaccine Date Status Refusal Reason pneumococcal 13-valent vaccine 3 05/19/19 Not Give n Patient Refuses 1Admin Note: ADM BY RAJEEV SHAH,vis 11/14/08 given 2Admin Note: GIVEN BY NURSE 3Result Comment: already received past 5 years Medications [...] 06/2007 Active TIA (transient ischemic attack)(Confirmed) Active Results Orders for Microbiology Reports Name Date Urine Culture (URINE CULTURE) 05/17/19 Microbiology Reports TEST:Urine Culture STATUS:Auth (Verified) BODY SITE: SOURCE:URINE COLLECTED DATE/TIME:05/17/19 11:15 PM Urine Culture SPECIMEN DESCRIPTION : URINE SPECIAL REQUESTS : NONE CULTURE : <10,000 COL/ML REPORT STATUS : FINAL 05/19/2019 Vital Signs Most recent to oldest [Reference Range]: 1 2 3 4 5 Height 182 cm (05/19/19 12:33 PM) 182 cm (05/19/19 10:09 AM) 182 cm (05/19/19 8:35 AM) Weight 77 kg (05/18/19 2:33 PM) 77 kg (05/18/19 3:31 AM) 77 kg (05/17/19 11:17 PM) Oxygen Saturation [94-100 %] 99 % (05/19/19 12:33 PM) 96 % (05/19/19 8:35 AM) 97 % (05/19/19 4:47 AM) Pulse Rate [55-90 bpm] 67 bpm (05/19/19 12:33 PM) 71 bpm (05/19/19 8:59 AM) 71 bpm (05/19/19 8:35 AM) Body Mass Index [18.5-24.99] 23.25 (05/18/19 3:31 AM) 23.25 (05/17/19 11:17 PM) Blood Pressure [90-138/55-84 mm Hg] 146/81mm Hg *H* (05/19/19 12:33 PM) 143/82mm Hg *H* (05/19/19 10:09 AM) 163/93mm Hg *H* (05/19/19 8:59 AM) 163/93mm Hg *H* (05/19/19 8:59 AM) 163/93mm Hg *H* (05/19/19 8:59 AM) Respiratory Rate [16-30 br/min] 18 br/min (05/19/19 12:33 PM) 18 br/min (05/19/19 8:35 AM) 18 br/min (05/19/19 4:47 AM) Temperature [96.8-100.4 DegF] 97.6 DegF (05/19/19 12:33 PM) 98.3 DegF (05/19/19 8:35 AM) 98 DegF (05/19/19 4:47 AM) Mode of Delivery (Oxygen) Room air (05/19/19 12:33 PM) Room air (05/19/19 8:35 AM) Room air (05/19/19 4:47 AM) Blood pressure sites Arm, left (05/19/19 12:33 PM) Arm, left (05/19/19 10:09 AM) Arm, left (05/19/19 8:35 AM) Temperature Route Oral (05/19/19 12:33 PM) Oral (05/19/19 8:35 AM) Oral (05/19/19 4:47 AM) Dry Weight 77 kg (05/18/19 3:31 AM) 77 kg (05/17/19 11:17 PM) 77 kg (05/17/19 8:45 PM) Sensory deficits None (05/18/19 3:31 AM) Mobility assistance Partial assistance (05/18/19 3:31 AM)
== END 2023-12-10 15:43 | disposition home or self-care (01) ==
LOC: HO.HCS 15:17
PROVIDERS: PCP Internal Medicine; Visit Provider Internal Medicine
DX: I25.10 Atherosclerotic heart disease of native coronary artery without angina pectoris (principal); I10 Essential (primary) hypertension; I71.20 Thoracic aortic aneurysm, without rupture, unspecified
CPT/HCPCS: 99214

== ENCOUNTER → 2023-12-10 15:17 | Outpatient (BNVA) | payer OTHER, SELFPAY | PROVIDERS: PCP Internal Medicine; Visit Provider Internal Medicine | DX: I10 Essential (primary) hypertension (principal); I25.10 Atherosclerotic heart disease of native coronary artery without angina pectoris; I71.20 Thoracic aortic aneurysm, without rupture, unspecified | CPT/HCPCS: 99212 ==